=== PATIENT | female | born 1980 | race Caucasian/White ===

== ENCOUNTER 2018-05-30 12:13 | Emergency (ER) | payer MEDICAID ==
[~2018-05-30] VITALS: Ht 160 cm; Wt 88.3 kg
[~2018-05-30 12:13] MED LIST: IBUP-1222 PO; NITR100C56 PO; OXYC-302 PO; QUET25TA5 PO
[2018-05-30] MEDS ORDERED: IBUPROFEN 200 MG TABLET PO ONE (13:00)
[2018-05-30] MEDS ORDERED: IBUPROFEN 200 MG TABLET ONE (13:14)
[2018-05-30 13:41] VITALS: BP 138/87
== END 2018-05-30 13:44 | disposition home or self-care (01) ==
LOC: ED 13:40
DX: M79.671 Pain in right foot (principal)
CPT/HCPCS: 99284

== ENCOUNTER 2018-12-02 11:43 | Emergency (ER) | payer MEDICAID, OTHER ==
[~2018-12-02] VITALS: Ht 160 cm; Wt 90.9 kg
[2018-12-02 11:46] VITALS: BP 146/85
--- NOTE | 2018-12-02 12:43 | NUR ---
Patient/Caregiver given discharge instructions and they have confirmed that they understand the instructions. Patient ambulatory with steady gait with crutches.
== END 2018-12-02 12:45 | disposition home or self-care (01) ==
LOC: ED 12:39
DX: S93.491A Sprain of other ligament of right ankle, initial encounter (principal); F17.200 Nicotine dependence, unspecified, uncomplicated; X50.1XXA Overexertion from prolonged static or awkward postures, initial encounter; Y93.01 Activity, walking, marching and hiking; Y92.89 Other specified places as the place of occurrence of the external cause; Y99.8 Other external cause status
CPT/HCPCS: 99283